=== PATIENT | male | born 1985 ===

== ENCOUNTER 2017-01-31 23:13 | Emergency (ER) | payer MEDICAID ==
[2017-01-31 23:22] VITALS: BP 124/78; PULSE 80; TEMP 97.7; O2SAT 97
[2017-01-31] MEDS ORDERED: Albuterol 0.083% Inhal Sol (2.5 mg/3 mL) UD IH STA (23:46)
--- NOTE | 2017-01-31 23:49 | ED PDOC ---
HPI: Asthma Time Seen by Provider: 01/31/17 23:37 Chief Complaint (Nursing): Shortness Of Breath Chief Complaint (Provider): asthma History Per: Patient Onset/Duration Of Symptoms: Sudden Onset Current Symptoms Are (Timing): Gone Now Associated Symptoms: Dyspnea, Cough (dry) Additional Complaint(s): sudden onset shortness of breath and chest tightness with no pain just prior to arrival 20 minutes resolved spontaneously Denies fever Reports similar episodes in the past but did not last as long. Sometimes associated with audible wheeze, intermittent for about 2-3 months. PMD None Past Medical History Reviewed: Historical Data, Nursing Documentation, Vital Signs Vital Signs: Last Vital Signs Temp 97.7 F 01/31/17 23:20 Pulse 80 01/31/17 23:20 Resp 20 01/31/17 23:20 BP 124/78 01/31/17 23:20 Pulse Ox 97 01/31/17 23:20 - Medical History PMH: No Chronic Diseases - Surgical History Surgical History: No Surg Hx - Family History Family History: States: No Known Family Hx - Social History Current smoker - smoking cessation education provided: No (but uses hookah regularly) Drugs: Denies - Home Medications Home Medications: Ambulatory Orders Medication Instructions Recorded Albuterol HFA [Ventolin HFA 90 1 - 2 puff IH Q6 PRN #1 inhaler 02/01/17 mcg/actuation (8 g)] - Allergies Allergies/Adverse Reactions: Allergies Allergy/AdvReac Type Severity Reaction Status Date / Time No Known Allergies Allergy Verified 01/31/17 23:22 Review of Systems ROS Statement: Except As Marked, All Systems Reviewed And Found Negative (and as per HPI) Respiratory: Positive for: Cough, Shortness of Breath, Wheezing. Negative for: Hemoptysis, SOB with Exertion, Pleuritic Pain, Sputum Physical Exam - Reviewed Nursing Documentation Reviewed: Yes Vital Signs Reviewed: Yes - Physical Exam Appears: Positive for: Well, No Acute Distress Head Exam: Positive for: ATRAUMATIC, NORMOCEPHALIC Skin: Positive for: Warm, Dry Eye Exam: Positive for: EOMI, PERRL ENT: Negative for: Pharyngeal Erythema, Tonsillar Exudate Neck: Positive for: Painless ROM, Supple Cardiovascular/Chest: Positive for: Regular Rate, Rhythm, Chest Non Tender. Negative for: Murmur Respiratory: Positive for: Wheezing (scattered end expiratory). Negative for: Rales, Respiratory Distress Gastrointestinal/Abdominal: Positive for: Soft. Negative for: Tenderness Back: Positive for: Normal Inspection. Negative for: Decreased ROM Extremity: Positive for: Normal ROM. Negative for: Pedal Edema Lymphatic: Negative for: Adenopathy Neurologic/Psych: Positive for: Alert. Negative for: Motor/Sensory Deficits - ECG ECG: Positive for: Interpreted By Me ECG Rhythm: Positive for: Normal QRS, Normal ST Segment, Sinus Rhythm O2 Sat by Pulse Oximetry: 97 Pulse Ox Interpretation: Normal Disposition - Clinical Impression Clinical Impression: Bronchospasm - Disposition Disposition Time: 00:00 Condition: STABLE Prescriptions: Albuterol HFA [Ventolin HFA 90 mcg/actuation (8 g)] 1 - 2 puff IH Q6 PRN #1 inhaler PRN Reason: Shortness Of Breath Patient Signed Over To: Miguel Angel Napoles Handoff Comments: Pending CXR, reassessment and final ER disposition
[2017-01-31] MEDS ORDERED: Albuterol 0.083% Inhal Sol (2.5 mg/3 mL) UD ONE (23:52)
[2017-02-01] VITALS: RESP 18
--- NOTE | 2017-02-01 00:17 | ED PDOC ---
- ECG O2 Sat by Pulse Oximetry: 97 Medical Decision Making Medical Decision Making: Time: 00:00 Patient is signed over to me by Dr. Antony pending chest x-ray and reevaluation Time: :30 Upon provider reevaluation patient is feeling better, is medically stable, and requires no further treatment in the ED at this time. Patient will be discharged home with Rx for Albuterol HFA. No acute distress was observed in chest x-ray. Counseling was provided and all questions were answered regarding diagnosis and need for follow up with PMD. There is agreement to discharge plan. Return if symptoms persist or worsen. Clinical Impression: Bronchospasm Scribe Attestation: Documented by Nell Ochoa acting as a scribe for Miguel Angel Napoles MD. Scribe Attestation: All medical record entries made by the Scribe were at my direction and personally dictated by me. I have reviewed the chart and agree that the record accurately reflects my personal performance of the history, physical exam, medical decision making, and the department course for this patient. I have also personally directed, reviewed, and agree with the discharge instructions and disposition Disposition Counseled Patient/Family Regarding: Studies Performed, Diagnosis, Need For Followup, Rx Given - Clinical Impression Clinical Impression: Bronchospasm - POA Present On Arrival: None - Disposition Disposition: Routine/Home Disposition Time: 01:30 Condition: STABLE Prescriptions: Albuterol HFA [Ventolin HFA 90 mcg/actuation (8 g)] 1 - 2 puff IH Q6 PRN #1 inhaler PRN Reason: Shortness Of Breath Instructions: Bronchospasm (ED) Forms: 2C2P ([place])
--- NOTE | 2017-02-01 10:29 | RAD ---
HISTORY: sob COMPARISON: No prior. TECHNIQUE: Chest PA and lateral FINDINGS: LUNGS: No active pulmonary disease. PLEURA: No significant pleural effusion identified. No pneumothorax apparent. CARDIOVASCULAR: Normal. OSSEOUS STRUCTURES: No significant abnormalities. VISUALIZED UPPER ABDOMEN: Normal. OTHER FINDINGS: None. IMPRESSION: No active disease.
== END 2017-02-01 02:00 | disposition home or self-care (01) ==
LOC: H.ER 23:13
DX: J98.01 Acute bronchospasm (principal)